=== PATIENT | female | born 1940 | race Caucasian/White ===

== ENCOUNTER 2021-03-09 10:53 | Inpatient (IN) | payer MEDICARE ==
[2021-03-09] MEDS ORDERED: Eucerin (Mineral Oil/Petrolatum,White) 30 gm Jar TOP PRN (14:12)
[2021-03-09] MEDS ORDERED: Sodium Chloride 0.65% Nasal 44 ML BOT EA NARE PRN (14:12)
[2021-03-09] MEDS ORDERED: Acetaminophen 325 MG TAB PO PRN (14:12)
[2021-03-09] MEDS ORDERED: HumaLOG 300 UNITS/3 ML VIAL SC PRN (14:12)
[2021-03-09] MEDS ORDERED: Calcium Carbonate 500 MG ChewTAB PO PRN (14:12)
[2021-03-09] MEDS ORDERED: Dextrose 50% Abboject 50 ML SYRINGE SLOW IVP PRN (14:12)
[2021-03-09] MEDS ORDERED: Acetaminophen 650 MG Suppository PR PRN (14:12)
[2021-03-09] MEDS ORDERED: Ondansetron ODT 4 MG TAB PO PRN (14:12)
[2021-03-09] MEDS ORDERED: Artificial Tear Sol 15 ML BOT EA EYE PRN (14:12)
[2021-03-09] MEDS ORDERED: Cepastat Lozenges 1 LOZ PO PRN (14:12)
[2021-03-09] MEDS ORDERED: Loperamide HCl 2 MG CAP PO PRN ×2 (14:12)
[2021-03-09] MEDS ORDERED: cloNIDine 0.1 MG TAB PO PRN (14:12)
[2021-03-09 16:35] LABS: Bilirubin Negative (Negative); Blood, Urine Small (Negative); Clarity Clear (Clear); Glucose, Urine (Dipstick) Negative (Negative); Ketone, Urine Negative (Negative); Leukocyte Small (Negative); Nitrite Negative (Negative); Protein, Urine (Dipstick) Negative (Neg-Trace); Specific Gravity, Urine 1.025 (1.005-1.030); Urobilinogen 0.2 mg/dL (Less than 2); pH, Urine 5.5 (5.0-9.0)
[2021-03-09 17:06] LABS: Bacteria/HPF Rare-Few HPF (None Seen); RBC/HPF 0-3 HPF (0-3); Squamous Epithelial 0-3 HPF (0-3)
[2021-03-09 17:07] LABS: Crystals/HPF 1+ URIC ACID HPF (Negative); Urine Culture Reflex Yes Yes
[2021-03-09] MEDS: Atorvastatin Calcium 40 MG TAB PO SCH (21:17)
[2021-03-09] MEDS: metFORMIN 500 MG TAB PO SCH (21:17)
[2021-03-09] MEDS: Ciprofloxacin 500 MG TAB PO SCH (21:17)
[2021-03-09] MEDS: Trospium 20 MG TAB PO SCH (21:17)
[2021-03-09] MEDS: Apixaban 5 MG TAB PO SCH (21:17)
[2021-03-09] MEDS: Famotidine 20 MG TAB PO SCH (21:17)
[2021-03-09] MEDS: Carvedilol 3.125 MG TAB PO SCH (21:17)
[2021-03-09] MEDS: Transdermal Patch Removal TOP SCH (21:19)
[2021-03-10 05:29] LABS: Anion Gap 11 mmol/L (10-20); BUN (Urea Nitrogen) 17 mg/dL (9.8-20.1); Calc. Creatinine Clearance 84 mL/min (70-130); Calcium 8.5 mg/dL (7.8-10.44); Carbon Dioxide 28 mmol/L (23-31); Chloride 101 mmol/L (98-107); Glucose 109 mg/dL (83-110); Potassium 4.2 mmol/L (3.5-5.1); Sodium 136 mmol/L (136-145)
[2021-03-10 05:32] LABS: Band 9 % (5-11); Eosinophils 1 % (0-10); Hemoglobin 10.7 g/dL (12.0-16.0); Lymphocytes 21 % (21-51); MDiff Complete? YES; Mean Corpuscular HGB CONC 30.3 g/dL (32.0-36.0); Mean Corpuscular Hemoglobin 28.5 pg (27.0-31.0); Mean Corpuscular Volume 94.1 fL (78.0-98.0); Mean Platelet Volume 7.8 fL (7.4-10.4); Metamyelocyte 6 % (0-0); Monocytes 2 % (0-10); Myelocyte 1 % (0-0); Neutrophil 60 % (42-75); Platelet Count 275 thou/uL (130-400); Platelet Morphology Comment Appears Adequate; RBC Distribution Width 12.1 % (11.5-14.5); RBC Morphology Normal; Red Blood Cell (RBC) Count 3.76 mill/uL (4.20-5.40); White Blood Cell (WBC) Count 11.6 thou/uL (4.8-10.8)
[2021-03-10] MEDS: Levothyroxine Sodium 75 MCG TAB PO SCH (05:37)
[2021-03-10] MEDS: Ciprofloxacin 500 MG TAB PO SCH ×2 (05:37→20:48)
[2021-03-10] MEDS: Levothyroxine Sodium 100 MCG TAB PO SCH (05:37)
[2021-03-10] MEDS ORDERED: Lidocaine 5% Patch TD SCH (09:00)
[2021-03-10] MEDS ORDERED: Non-Formulary Item 1 EACH (Solifenacin Succinate [Vesicare] 10 MG Tab) PO SCH (09:00)
[2021-03-10] MEDS: Aspirin 81 mg Enteric Coated Tablet PO SCH (09:08)
[2021-03-10] MEDS: Carvedilol 3.125 MG TAB PO SCH ×2 (09:08→20:49)
[2021-03-10] MEDS: Ezetimibe 10 MG TAB PO SCH (09:08)
[2021-03-10] MEDS: Amiodarone 200 MG TAB PO SCH (09:09)
[2021-03-10] MEDS: Trospium 20 MG TAB PO SCH ×2 (09:09→20:48)
[2021-03-10] MEDS: Losartan 25 MG TAB PO SCH (09:09)
[2021-03-10] MEDS: Apixaban 5 MG TAB PO SCH ×2 (09:09→20:49)
[2021-03-10] MEDS: Famotidine 20 MG TAB PO SCH ×2 (09:09→20:48)
[2021-03-10] MEDS: metFORMIN 500 MG TAB PO SCH ×2 (09:09→20:49)
[2021-03-10] MEDS: Lidocaine 5% Patch TD SCH (09:09)
[2021-03-10] MEDS: Transdermal Patch Removal TOP SCH (20:49)
[2021-03-10] MEDS: Atorvastatin Calcium 40 MG TAB PO SCH (20:49)
[2021-03-11] MEDS: Levothyroxine Sodium 75 MCG TAB PO SCH (06:10)
[2021-03-11] MEDS: Ciprofloxacin 500 MG TAB PO SCH ×2 (06:10→20:28)
[2021-03-11] MEDS: Levothyroxine Sodium 100 MCG TAB PO SCH (06:10)
[2021-03-11] MEDS: Aspirin 81 mg Enteric Coated Tablet PO SCH (08:55)
[2021-03-11] MEDS: Famotidine 20 MG TAB PO SCH ×2 (08:55→20:28)
[2021-03-11] MEDS: Ezetimibe 10 MG TAB PO SCH (08:55)
[2021-03-11] MEDS: Carvedilol 3.125 MG TAB PO SCH ×2 (08:55→20:29)
[2021-03-11] MEDS: Apixaban 5 MG TAB PO SCH ×2 (08:55→20:29)
[2021-03-11] MEDS: Amiodarone 200 MG TAB PO SCH (08:55)
[2021-03-11] MEDS: Lidocaine 5% Patch TD SCH (08:56)
[2021-03-11] MEDS: Losartan 25 MG TAB PO SCH (08:56)
[2021-03-11] MEDS: Trospium 20 MG TAB PO SCH ×2 (08:56→20:29)
[2021-03-11] MEDS: metFORMIN 500 MG TAB PO SCH ×2 (08:56→20:29)
[2021-03-11] MEDS: Bisacodyl 5 MG TAB PO PRN (12:34)
[2021-03-11] MEDS: Atorvastatin Calcium 40 MG TAB PO SCH (20:28)
[2021-03-11] MEDS: Transdermal Patch Removal TOP SCH (20:29)
[2021-03-12] MEDS: Levothyroxine Sodium 75 MCG TAB PO SCH (05:51)
[2021-03-12] MEDS: Levothyroxine Sodium 100 MCG TAB PO SCH (05:51)
[2021-03-12] MEDS: Ciprofloxacin 500 MG TAB PO SCH ×2 (05:51→21:27)
[2021-03-12] MEDS: Apixaban 5 MG TAB PO SCH ×2 (09:40→21:28)
[2021-03-12] MEDS: Amiodarone 200 MG TAB PO SCH (09:40)
[2021-03-12] MEDS: Aspirin 81 mg Enteric Coated Tablet PO SCH (09:40)
[2021-03-12] MEDS: Ezetimibe 10 MG TAB PO SCH (09:41)
[2021-03-12] MEDS: Famotidine 20 MG TAB PO SCH ×2 (09:41→21:27)
[2021-03-12] MEDS: Losartan 25 MG TAB PO SCH (09:41)
[2021-03-12] MEDS: Carvedilol 3.125 MG TAB PO SCH ×2 (09:41→21:28)
[2021-03-12] MEDS: Lidocaine 5% Patch TD SCH (09:41)
[2021-03-12] MEDS: Trospium 20 MG TAB PO SCH ×2 (09:41→21:28)
[2021-03-12] MEDS: metFORMIN 500 MG TAB PO SCH ×2 (09:41→21:28)
[2021-03-12] MEDS: Bisacodyl 5 MG TAB PO PRN (09:42)
[2021-03-12] MEDS ORDERED: Ondansetron ODT 4 MG TAB SL PRN (12:15)
[2021-03-12] MEDS ORDERED: Fleet Enema 133 ML BOT PR PRN (13:50)
[2021-03-12] MEDS ORDERED: Magnesium Citrate 300 ML BOT PO SCH (14:45)
[2021-03-12] MEDS: Transdermal Patch Removal TOP SCH (21:28)
[2021-03-12] MEDS: Atorvastatin Calcium 40 MG TAB PO SCH (21:28)
[2021-03-13] MEDS: Levothyroxine Sodium 75 MCG TAB PO SCH (06:21)
[2021-03-13] MEDS: Ciprofloxacin 500 MG TAB PO SCH ×2 (06:21→21:20)
[2021-03-13] MEDS: Levothyroxine Sodium 100 MCG TAB PO SCH (06:21)
[2021-03-13] MEDS: Ezetimibe 10 MG TAB PO SCH (09:51)
[2021-03-13] MEDS: Trospium 20 MG TAB PO SCH ×2 (09:51→21:21)
[2021-03-13] MEDS: metFORMIN 500 MG TAB PO SCH ×2 (09:51→21:21)
[2021-03-13] MEDS: Aspirin 81 mg Enteric Coated Tablet PO SCH (09:51)
[2021-03-13] MEDS: Amiodarone 200 MG TAB PO SCH (09:51)
[2021-03-13] MEDS: Apixaban 5 MG TAB PO SCH ×2 (09:51→21:21)
[2021-03-13] MEDS: Famotidine 20 MG TAB PO SCH ×2 (09:51→21:21)
[2021-03-13] MEDS: Lidocaine 5% Patch TD SCH (09:51)
[2021-03-13] MEDS: Losartan 25 MG TAB PO SCH (09:52)
[2021-03-13] MEDS: Acetaminophen 500 MG TAB PO PRN (09:52)
[2021-03-13] MEDS: Carvedilol 3.125 MG TAB PO SCH ×2 (09:52→21:20)
[2021-03-13] MEDS: Atorvastatin Calcium 40 MG TAB PO SCH (21:20)
[2021-03-13] MEDS: Transdermal Patch Removal TOP SCH (21:23)
[2021-03-14] MEDS: Levothyroxine Sodium 75 MCG TAB PO SCH (05:05)
[2021-03-14] MEDS: Ciprofloxacin 500 MG TAB PO SCH ×2 (05:05→20:33)
[2021-03-14] MEDS: Levothyroxine Sodium 100 MCG TAB PO SCH (05:05)
[2021-03-14] MEDS: Famotidine 20 MG TAB PO SCH ×2 (08:30→20:33)
[2021-03-14] MEDS: Ezetimibe 10 MG TAB PO SCH (08:30)
[2021-03-14] MEDS: Trospium 20 MG TAB PO SCH ×2 (08:31→20:33)
[2021-03-14] MEDS: Aspirin 81 mg Enteric Coated Tablet PO SCH (08:31)
[2021-03-14] MEDS: Apixaban 5 MG TAB PO SCH ×2 (08:31→20:33)
[2021-03-14] MEDS: metFORMIN 500 MG TAB PO SCH ×2 (08:31→20:33)
[2021-03-14] MEDS: Amiodarone 200 MG TAB PO SCH (08:31)
[2021-03-14] MEDS: Carvedilol 3.125 MG TAB PO SCH ×2 (08:31→20:33)
[2021-03-14] MEDS: Losartan 25 MG TAB PO SCH (08:31)
[2021-03-14] MEDS: Lidocaine 5% Patch TD SCH (08:31)
[2021-03-14] MEDS: Transdermal Patch Removal TOP SCH (20:33)
[2021-03-14] MEDS: Atorvastatin Calcium 40 MG TAB PO SCH (20:33)
[2021-03-14] MEDS: Acetaminophen 500 MG TAB PO PRN (20:38)
[2021-03-15] MEDS: Levothyroxine Sodium 75 MCG TAB PO SCH (05:39)
[2021-03-15] MEDS: Levothyroxine Sodium 100 MCG TAB PO SCH (05:39)
[2021-03-15] MEDS: Ciprofloxacin 500 MG TAB PO SCH ×2 (05:39→20:41)
[2021-03-15] MEDS: Aspirin 81 mg Enteric Coated Tablet PO SCH (12:08)
[2021-03-15] MEDS: Amiodarone 200 MG TAB PO SCH (12:08)
[2021-03-15] MEDS: Apixaban 5 MG TAB PO SCH ×2 (12:08→20:41)
[2021-03-15] MEDS: Carvedilol 3.125 MG TAB PO SCH ×2 (12:08→20:41)
[2021-03-15] MEDS: Lidocaine 5% Patch TD SCH (12:09)
[2021-03-15] MEDS: Famotidine 20 MG TAB PO SCH ×2 (12:09→20:41)
[2021-03-15] MEDS: Trospium 20 MG TAB PO SCH ×2 (12:09→20:41)
[2021-03-15] MEDS: Ezetimibe 10 MG TAB PO SCH (12:09)
[2021-03-15] MEDS: metFORMIN 500 MG TAB PO SCH ×2 (12:09→20:41)
[2021-03-15] MEDS: Losartan 25 MG TAB PO SCH (12:09)
[2021-03-15] MEDS: Atorvastatin Calcium 40 MG TAB PO SCH (20:41)
[2021-03-15] MEDS: Acetaminophen 500 MG TAB PO PRN (20:52)
[2021-03-15] MEDS: Transdermal Patch Removal TOP SCH (21:00)
[2021-03-16] MEDS: Ciprofloxacin 500 MG TAB PO SCH ×2 (05:33→21:14)
[2021-03-16] MEDS: Levothyroxine Sodium 75 MCG TAB PO SCH (05:33)
[2021-03-16] MEDS: Levothyroxine Sodium 100 MCG TAB PO SCH (05:37)
[2021-03-16] MEDS: metFORMIN 500 MG TAB PO SCH ×2 (08:31→21:14)
[2021-03-16] MEDS: Aspirin 81 mg Enteric Coated Tablet PO SCH (08:31)
[2021-03-16] MEDS: Famotidine 20 MG TAB PO SCH ×2 (08:32→21:16)
[2021-03-16] MEDS: Carvedilol 3.125 MG TAB PO SCH ×2 (08:32→21:16)
[2021-03-16] MEDS: Trospium 20 MG TAB PO SCH ×2 (08:32→21:16)
[2021-03-16] MEDS: Losartan 25 MG TAB PO SCH (08:32)
[2021-03-16] MEDS: Ezetimibe 10 MG TAB PO SCH (08:32)
[2021-03-16] MEDS: Apixaban 5 MG TAB PO SCH ×2 (08:32→21:16)
[2021-03-16] MEDS: Amiodarone 200 MG TAB PO SCH (08:32)
[2021-03-16] MEDS: Lidocaine 5% Patch TD SCH (08:33)
[2021-03-16] MEDS: Transdermal Patch Removal TOP SCH (21:00)
[2021-03-16] MEDS: Acetaminophen 500 MG TAB PO PRN (21:14)
[2021-03-16] MEDS: Atorvastatin Calcium 40 MG TAB PO SCH (21:16)
[2021-03-17] MEDS: Ciprofloxacin 500 MG TAB PO SCH ×2 (05:16→21:56)
[2021-03-17] MEDS: Levothyroxine Sodium 75 MCG TAB PO SCH (05:16)
[2021-03-17] MEDS: Levothyroxine Sodium 100 MCG TAB PO SCH (05:16)
[2021-03-17] MEDS: Losartan 25 MG TAB PO SCH (05:16)
[2021-03-17] MEDS: Aspirin 81 mg Enteric Coated Tablet PO SCH (07:58)
[2021-03-17] MEDS: Apixaban 5 MG TAB PO SCH ×2 (07:59→21:56)
[2021-03-17] MEDS: Ezetimibe 10 MG TAB PO SCH (07:59)
[2021-03-17] MEDS: Senokot S 8.6-50 MG TAB PO PRN (07:59)
[2021-03-17] MEDS: Trospium 20 MG TAB PO SCH ×2 (07:59→21:56)
[2021-03-17] MEDS: metFORMIN 500 MG TAB PO SCH ×2 (07:59→21:56)
[2021-03-17] MEDS: Carvedilol 3.125 MG TAB PO SCH ×2 (08:00→21:56)
[2021-03-17] MEDS: Amiodarone 200 MG TAB PO SCH (08:00)
[2021-03-17] MEDS: Famotidine 20 MG TAB PO SCH ×2 (08:00→21:56)
[2021-03-17] MEDS: Lidocaine 5% Patch TD SCH (08:02)
[2021-03-17] MEDS: Bisacodyl 5 MG TAB PO PRN (14:52)
[2021-03-17] MEDS: Atorvastatin Calcium 40 MG TAB PO SCH (21:57)
[2021-03-17] MEDS: Transdermal Patch Removal TOP SCH (22:02)
[2021-03-18] MEDS: Ciprofloxacin 500 MG TAB PO SCH ×2 (05:31→21:31)
[2021-03-18] MEDS: Losartan 25 MG TAB PO SCH (05:32)
[2021-03-18] MEDS: Levothyroxine Sodium 75 MCG TAB PO SCH (05:32)
[2021-03-18] MEDS: Levothyroxine Sodium 100 MCG TAB PO SCH (05:32)
[2021-03-18] MEDS: Lidocaine 5% Patch TD SCH (09:19)
[2021-03-18] MEDS: Acetaminophen 500 MG TAB PO PRN (09:20)
[2021-03-18] MEDS: Aspirin 81 mg Enteric Coated Tablet PO SCH (09:20)
[2021-03-18] MEDS: Famotidine 20 MG TAB PO SCH ×2 (09:20→21:31)
[2021-03-18] MEDS: Trospium 20 MG TAB PO SCH ×2 (09:20→21:31)
[2021-03-18] MEDS: Carvedilol 3.125 MG TAB PO SCH ×2 (09:20→21:31)
[2021-03-18] MEDS: Ezetimibe 10 MG TAB PO SCH (09:20)
[2021-03-18] MEDS: metFORMIN 500 MG TAB PO SCH ×2 (09:20→21:31)
[2021-03-18] MEDS: Amiodarone 200 MG TAB PO SCH (09:20)
[2021-03-18] MEDS: Apixaban 5 MG TAB PO SCH ×2 (09:20→21:31)
[2021-03-18] MEDS: Senokot S 8.6-50 MG TAB PO PRN (09:24)
[2021-03-18] MEDS: Atorvastatin Calcium 40 MG TAB PO SCH (21:31)
[2021-03-18] MEDS: Transdermal Patch Removal TOP SCH (21:41)
[2021-03-19] MEDS: Levothyroxine Sodium 100 MCG TAB PO SCH (04:53)
[2021-03-19] MEDS: Losartan 25 MG TAB PO SCH (04:53)
[2021-03-19] MEDS: Levothyroxine Sodium 75 MCG TAB PO SCH (04:54)
[2021-03-19] MEDS: Ciprofloxacin 500 MG TAB PO SCH ×2 (04:54→20:51)
[2021-03-19] MEDS: metFORMIN 500 MG TAB PO SCH ×2 (09:55→20:51)
[2021-03-19] MEDS: Lidocaine 5% Patch TD SCH (09:55)
[2021-03-19] MEDS: Ezetimibe 10 MG TAB PO SCH (09:55)
[2021-03-19] MEDS: Amiodarone 200 MG TAB PO SCH (09:55)
[2021-03-19] MEDS: Acetaminophen 500 MG TAB PO PRN (09:55)
[2021-03-19] MEDS: Trospium 20 MG TAB PO SCH ×2 (09:55→20:51)
[2021-03-19] MEDS: Famotidine 20 MG TAB PO SCH ×2 (09:55→20:51)
[2021-03-19] MEDS: Carvedilol 3.125 MG TAB PO SCH ×2 (09:55→20:50)
[2021-03-19] MEDS: Apixaban 5 MG TAB PO SCH ×2 (09:55→20:51)
[2021-03-19] MEDS: Aspirin 81 mg Enteric Coated Tablet PO SCH (09:55)
[2021-03-19] MEDS: Atorvastatin Calcium 40 MG TAB PO SCH (20:51)
[2021-03-19] MEDS: Transdermal Patch Removal TOP SCH (20:51)
[2021-03-20] MEDS: Acetaminophen 500 MG TAB PO PRN (01:20)
[2021-03-20] MEDS: Levothyroxine Sodium 75 MCG TAB PO SCH (05:14)
[2021-03-20] MEDS: Ciprofloxacin 500 MG TAB PO SCH ×2 (05:15→21:04)
[2021-03-20] MEDS: Levothyroxine Sodium 100 MCG TAB PO SCH (05:15)
[2021-03-20] MEDS: Losartan Potassium 50 MG TAB PO SCH (05:15)
[2021-03-20] MEDS: Amiodarone 200 MG TAB PO SCH (09:05)
[2021-03-20] MEDS: Apixaban 5 MG TAB PO SCH ×2 (09:05→21:04)
[2021-03-20] MEDS: Aspirin 81 mg Enteric Coated Tablet PO SCH (09:05)
[2021-03-20] MEDS: Carvedilol 3.125 MG TAB PO SCH ×2 (09:05→21:04)
[2021-03-20] MEDS: Lidocaine 5% Patch TD SCH (09:06)
[2021-03-20] MEDS: Famotidine 20 MG TAB PO SCH ×2 (09:06→21:04)
[2021-03-20] MEDS: Trospium 20 MG TAB PO SCH ×2 (09:06→21:04)
[2021-03-20] MEDS: metFORMIN 500 MG TAB PO SCH ×2 (09:06→21:04)
[2021-03-20] MEDS: Ezetimibe 10 MG TAB PO SCH (09:06)
[2021-03-20] MEDS: Transdermal Patch Removal TOP SCH (21:04)
[2021-03-20] MEDS: Atorvastatin Calcium 40 MG TAB PO SCH (21:04)
[2021-03-21 05:13] LABS: Hemoglobin 12.9 g/dL (12.0-16.0); Platelet Count 505 thou/uL (130-400)
[2021-03-21] MEDS: Levothyroxine Sodium 100 MCG TAB PO SCH (05:44)
[2021-03-21] MEDS: Losartan Potassium 50 MG TAB PO SCH (05:44)
[2021-03-21] MEDS: Levothyroxine Sodium 75 MCG TAB PO SCH (05:44)
[2021-03-21] MEDS: Ciprofloxacin 500 MG TAB PO SCH ×2 (05:44→20:39)
[2021-03-21] MEDS: Famotidine 20 MG TAB PO SCH ×2 (08:58→20:38)
[2021-03-21] MEDS: Aspirin 81 mg Enteric Coated Tablet PO SCH (08:58)
[2021-03-21] MEDS: Carvedilol 3.125 MG TAB PO SCH ×2 (08:58→20:39)
[2021-03-21] MEDS: Ezetimibe 10 MG TAB PO SCH (08:58)
[2021-03-21] MEDS: Amiodarone 200 MG TAB PO SCH (08:58)
[2021-03-21] MEDS: Apixaban 5 MG TAB PO SCH ×2 (08:58→20:39)
[2021-03-21] MEDS: Lidocaine 5% Patch TD SCH (08:59)
[2021-03-21] MEDS: metFORMIN 500 MG TAB PO SCH ×2 (08:59→20:39)
[2021-03-21] MEDS: Trospium 20 MG TAB PO SCH ×2 (08:59→20:39)
[2021-03-21] MEDS: Atorvastatin Calcium 40 MG TAB PO SCH (20:39)
[2021-03-21] MEDS: Acetaminophen 500 MG TAB PO PRN (20:40)
[2021-03-21] MEDS: Transdermal Patch Removal TOP SCH (20:41)
[2021-03-22] MEDS: Levothyroxine Sodium 100 MCG TAB PO SCH (05:28)
[2021-03-22] MEDS: Ciprofloxacin 500 MG TAB PO SCH ×2 (05:28→20:27)
[2021-03-22] MEDS: Losartan Potassium 50 MG TAB PO SCH (05:28)
[2021-03-22] MEDS: Levothyroxine Sodium 75 MCG TAB PO SCH (05:36)
[2021-03-22] MEDS: Ezetimibe 10 MG TAB PO SCH (08:25)
[2021-03-22] MEDS: Amiodarone 200 MG TAB PO SCH (08:25)
[2021-03-22] MEDS: Trospium 20 MG TAB PO SCH ×2 (08:25→20:28)
[2021-03-22] MEDS: Carvedilol 3.125 MG TAB PO SCH ×2 (08:25→20:27)
[2021-03-22] MEDS: Aspirin 81 mg Enteric Coated Tablet PO SCH (08:25)
[2021-03-22] MEDS: metFORMIN 500 MG TAB PO SCH ×2 (08:25→20:27)
[2021-03-22] MEDS: Apixaban 5 MG TAB PO SCH ×2 (08:25→20:27)
[2021-03-22] MEDS: Famotidine 20 MG TAB PO SCH ×2 (08:25→20:28)
[2021-03-22] MEDS: Lidocaine 5% Patch TD SCH (08:26)
[2021-03-22] MEDS: Atorvastatin Calcium 40 MG TAB PO SCH (20:27)
[2021-03-22] MEDS: Transdermal Patch Removal TOP SCH (20:28)
[2021-03-23] MEDS: Ciprofloxacin 500 MG TAB PO SCH ×2 (05:23→20:49)
[2021-03-23] MEDS: Levothyroxine Sodium 75 MCG TAB PO SCH (05:23)
[2021-03-23] MEDS: Losartan Potassium 50 MG TAB PO SCH (05:23)
[2021-03-23] MEDS: Levothyroxine Sodium 100 MCG TAB PO SCH (05:23)
[2021-03-23] MEDS: Trospium 20 MG TAB PO SCH ×2 (07:46→20:49)
[2021-03-23] MEDS: Ezetimibe 10 MG TAB PO SCH (07:47)
[2021-03-23] MEDS: Carvedilol 3.125 MG TAB PO SCH ×2 (07:47→20:49)
[2021-03-23] MEDS: Famotidine 20 MG TAB PO SCH ×2 (07:47→20:49)
[2021-03-23] MEDS: Aspirin 81 mg Enteric Coated Tablet PO SCH (07:47)
[2021-03-23] MEDS: Apixaban 5 MG TAB PO SCH ×2 (07:47→20:49)
[2021-03-23] MEDS: Amiodarone 200 MG TAB PO SCH (07:47)
[2021-03-23] MEDS: metFORMIN 500 MG TAB PO SCH ×2 (07:48→20:50)
[2021-03-23] MEDS: Lidocaine 5% Patch TD SCH (07:48)
[2021-03-23] MEDS: Senokot S 8.6-50 MG TAB PO PRN (12:21)
[2021-03-23] MEDS: Atorvastatin Calcium 40 MG TAB PO SCH (20:49)
[2021-03-23] MEDS: Transdermal Patch Removal TOP SCH (20:50)
[2021-03-23] MEDS: Acetaminophen 500 MG TAB PO PRN (20:50)
[2021-03-24] MEDS: Levothyroxine Sodium 75 MCG TAB PO SCH (05:07)
[2021-03-24] MEDS: Ciprofloxacin 500 MG TAB PO SCH ×2 (05:07→20:37)
[2021-03-24] MEDS: Losartan Potassium 50 MG TAB PO SCH (05:07)
[2021-03-24] MEDS: Levothyroxine Sodium 100 MCG TAB PO SCH (05:07)
[2021-03-24] MEDS: Amiodarone 200 MG TAB PO SCH (08:12)
[2021-03-24] MEDS: Apixaban 5 MG TAB PO SCH ×2 (08:12→20:37)
[2021-03-24] MEDS: Aspirin 81 mg Enteric Coated Tablet PO SCH (08:12)
[2021-03-24] MEDS: Trospium 20 MG TAB PO SCH ×2 (08:12→20:37)
[2021-03-24] MEDS: Ezetimibe 10 MG TAB PO SCH (08:13)
[2021-03-24] MEDS: Carvedilol 3.125 MG TAB PO SCH ×2 (08:13→20:37)
[2021-03-24] MEDS: metFORMIN 500 MG TAB PO SCH ×2 (08:13→20:37)
[2021-03-24] MEDS: Famotidine 20 MG TAB PO SCH ×2 (08:13→20:37)
[2021-03-24] MEDS: Acetaminophen 500 MG TAB PO PRN ×2 (08:14→20:38)
[2021-03-24] MEDS: Lidocaine 5% Patch TD SCH (08:14)
[2021-03-24] MEDS: Atorvastatin Calcium 40 MG TAB PO SCH (20:37)
[2021-03-24] MEDS: Transdermal Patch Removal TOP SCH (20:38)
[2021-03-25] MEDS: Levothyroxine Sodium 75 MCG TAB PO SCH (05:03)
[2021-03-25] MEDS: Ciprofloxacin 500 MG TAB PO SCH ×2 (05:03→22:01)
[2021-03-25] MEDS: Levothyroxine Sodium 100 MCG TAB PO SCH (05:04)
[2021-03-25] MEDS: Losartan Potassium 50 MG TAB PO SCH (05:04)
[2021-03-25 06:08] VITALS: BMI 33.1
[2021-03-25] MEDS: Aspirin 81 mg Enteric Coated Tablet PO SCH (08:32)
[2021-03-25] MEDS: Carvedilol 3.125 MG TAB PO SCH ×2 (08:32→21:28)
[2021-03-25] MEDS: Famotidine 20 MG TAB PO SCH ×2 (08:32→21:28)
[2021-03-25] MEDS: metFORMIN 500 MG TAB PO SCH ×2 (08:32→21:28)
[2021-03-25] MEDS: Lidocaine 5% Patch TD SCH (08:32)
[2021-03-25] MEDS: Apixaban 5 MG TAB PO SCH ×2 (08:32→21:28)
[2021-03-25] MEDS: Trospium 20 MG TAB PO SCH ×2 (08:32→21:28)
[2021-03-25] MEDS: Ezetimibe 10 MG TAB PO SCH (08:32)
[2021-03-25] MEDS: Amiodarone 200 MG TAB PO SCH (08:32)
[2021-03-25] MEDS: Bisacodyl 5 MG TAB PO PRN (08:54)
[2021-03-25] MEDS: Acetaminophen 500 MG TAB PO PRN ×2 (15:43→21:28)
[2021-03-25] MEDS: Atorvastatin Calcium 40 MG TAB PO SCH (21:28)
[2021-03-25] MEDS: Transdermal Patch Removal TOP SCH (21:29)
[2021-03-26] MEDS: Ciprofloxacin 500 MG TAB PO SCH (05:30)
[2021-03-26] MEDS: Levothyroxine Sodium 75 MCG TAB PO SCH (05:30)
[2021-03-26] MEDS: Losartan Potassium 50 MG TAB PO SCH (05:30)
[2021-03-26] MEDS: Levothyroxine Sodium 100 MCG TAB PO SCH (05:30)
[2021-03-26] MEDS: Acetaminophen 500 MG TAB PO PRN (06:27)
[2021-03-26] MEDS: Trospium 20 MG TAB PO SCH (08:20)
[2021-03-26] MEDS: Famotidine 20 MG TAB PO SCH (08:20)
[2021-03-26] MEDS: Apixaban 5 MG TAB PO SCH (08:20)
[2021-03-26] MEDS: Aspirin 81 mg Enteric Coated Tablet PO SCH (08:20)
[2021-03-26] MEDS: Amiodarone 200 MG TAB PO SCH (08:20)
[2021-03-26] MEDS: Carvedilol 3.125 MG TAB PO SCH (08:21)
[2021-03-26] MEDS: Ezetimibe 10 MG TAB PO SCH (08:21)
[2021-03-26] MEDS: Lidocaine 5% Patch TD SCH (08:21)
[2021-03-26] MEDS: metFORMIN 500 MG TAB PO SCH (08:21)
[2021-03-26 09:10] VITALS: BP 164/84; TEMP 98.4
== END 2021-03-26 14:30 | disposition home health service (06) | DRG 69 ==
LOC: NAV ACUTE 12:30
PROVIDERS: ADMIT Family Medicine; ATTEND Family Medicine
DX: G45.9 Transient cerebral ischemic attack, unspecified (principal); N39.0 Urinary tract infection, site not specified; I50.30 Unspecified diastolic (congestive) heart failure; I48.91 Unspecified atrial fibrillation; I11.0 Hypertensive heart disease with heart failure; E03.9 Hypothyroidism, unspecified; K21.9 Gastro-esophageal reflux disease without esophagitis; E11.9 Type 2 diabetes mellitus without complications; E78.5 Hyperlipidemia, unspecified; X58.XXXD Exposure to other specified factors, subsequent encounter; K59.00 Constipation, unspecified; S52.512D Displaced fracture of left radial styloid process, subsequent encounter for closed fracture with routine healing; S52.612D Displaced fracture of left ulna styloid process, subsequent encounter for closed fracture with routine healing; Z85.3 Personal history of malignant neoplasm of breast; Z90.12 Acquired absence of left breast and nipple; Z90.710 Acquired absence of both cervix and uterus; Z90.49 Acquired absence of other specified parts of digestive tract; Z90.89 Acquired absence of other organs; Z98.890 Other specified postprocedural states; Z87.891 Personal history of nicotine dependence
CPT/HCPCS: 36416; 80048; 81001; 82565; 85014; 85018; 85025; 85049; 87086

== ENCOUNTER 2021-06-26 15:20 | Inpatient (IN) | payer MEDICARE ==
[2021-06-26] MEDS ORDERED: HumaLOG 300 UNITS/3 ML VIAL SC PRN ×2 (20:15)
[2021-06-26] MEDS ORDERED: Dextrose 5% in Water 1,000 ML IV PRN (20:15)
[2021-06-26] MEDS ORDERED: Dextrose 50% Abboject 50 ML SYRINGE IVP PRN (20:15)
[2021-06-26] MEDS: Saccharomyces boulardii 250 MG CAP PO SCH (20:27)
[2021-06-26] MEDS: Apixaban 5 MG TAB PO SCH (20:28)
[2021-06-26] MEDS: Atorvastatin Calcium 40 MG TAB PO SCH (20:28)
[2021-06-26] MEDS: Cefdinir 300 MG CAP PO SCH (20:28)
[2021-06-26] MEDS: Trospium 20 MG TAB PO SCH (22:33)
[2021-06-27] MEDS: Levothyroxine Sodium 100 MCG TAB PO SCH (05:35)
[2021-06-27] MEDS: Levothyroxine Sodium 75 MCG TAB PO SCH (05:35)
[2021-06-27] MEDS: Losartan Potassium 50 MG TAB PO SCH (05:36)
[2021-06-27] MEDS: Acetaminophen 325 MG TAB PO PRN (06:07)
[2021-06-27 06:42] LABS: #Basophils 0.3 thou/uL (0.0-0.2); #Eosinphils 0.3 thou/uL (0.0-0.7); #Lymphocytes 2.1 thou/uL (1.20-3.40); #Monocytes 1.8 thou/uL (0.11-0.59); %Basophils 1.9 % (0.0-1.0); %Eosinophils 2.3 % (0.0-10.0); %Lymphocytes 15.7 % (21.0-51.0); %Neutrophils 67.1 % (42.0-75.0); Hemoglobin 11.8 g/dL (12.0-16.0); Mean Corpuscular HGB CONC 31.8 g/dL (32.0-36.0); Mean Corpuscular Hemoglobin 30.1 pg (27.0-31.0); Mean Corpuscular Volume 94.5 fL (78.0-98.0); Mean Platelet Volume 7.3 fL (7.4-10.4); Platelet Count 348 thou/uL (130-400); RBC Distribution Width 12.9 % (11.5-14.5); Red Blood Cell (RBC) Count 3.91 mill/uL (4.20-5.40); White Blood Cell (WBC) Count 13.4 thou/uL (4.8-10.8)
[2021-06-27 06:52] LABS: ALT (SGPT) 24 U/L (8-55); AST (SGOT) 24 U/L (5-34); Albumin 3.3 g/dL (3.4-4.8); Alkaline Phosphatase 79 U/L (40-110); Anion Gap 16 mmol/L (10-20); BUN (Urea Nitrogen) 13 mg/dL (9.8-20.1); Bilirubin, Total 0.7 mg/dL (0.2-1.2); Calc. Creatinine Clearance 79 mL/min (70-130); Calcium 9.6 mg/dL (7.8-10.44); Carbon Dioxide 23 mmol/L (23-31); Chloride 101 mmol/L (98-107); Globulin 3.6 g/dL (2.4-3.5); Glucose 137 mg/dL (83-110); Potassium 4.5 mmol/L (3.5-5.1); Protein, Total 6.9 g/dL (5.8-8.1); Sodium 135 mmol/L (136-145)
[2021-06-27] MEDS ORDERED: Mag-Al Plus 1200 MG/1200 MG/120 MG/30 ML UDCUP PO PRN (07:01)
[2021-06-27] MEDS ORDERED: cloNIDine 0.1 MG TAB PO PRN (07:02)
[2021-06-27] MEDS: Carvedilol 6.25 MG TAB PO SCH ×2 (08:47→17:14)
[2021-06-27] MEDS: Cefdinir 300 MG CAP PO SCH ×2 (08:49→20:23)
[2021-06-27] MEDS: Furosemide 40 MG TAB PO SCH (08:49)
[2021-06-27] MEDS: Apixaban 5 MG TAB PO SCH ×2 (08:49→20:23)
[2021-06-27] MEDS: Aspirin 81 mg Enteric Coated Tablet PO SCH (08:49)
[2021-06-27] MEDS: metFORMIN 500 MG TAB PO SCH (08:49)
[2021-06-27] MEDS: Multivitamin W/ Minerals 1 TAB PO SCH (08:50)
[2021-06-27] MEDS: Trospium 20 MG TAB PO SCH ×2 (08:50→20:23)
[2021-06-27] MEDS: Saccharomyces boulardii 250 MG CAP PO SCH (20:23)
[2021-06-27] MEDS: Atorvastatin Calcium 40 MG TAB PO SCH (20:23)
[2021-06-28] MEDS: Levothyroxine Sodium 75 MCG TAB PO SCH (05:07)
[2021-06-28] MEDS: Levothyroxine Sodium 100 MCG TAB PO SCH (05:07)
[2021-06-28] MEDS: Losartan Potassium 50 MG TAB PO SCH (05:07)
[2021-06-28 07:43] LABS: #Basophils 0.2 thou/uL (0.0-0.2); #Eosinphils 0.2 thou/uL (0.0-0.7); #Lymphocytes 2.9 thou/uL (1.20-3.40); #Monocytes 1.9 thou/uL (0.11-0.59); #Neutrophils 9.8 thou/uL (1.40-6.50); %Basophils 1.2 % (0.0-1.0); %Eosinophils 1.6 % (0.0-10.0); %Lymphocytes 19.4 % (21.0-51.0); %Monocytes 12.7 % (0.0-10.0); Hemoglobin 11.4 g/dL (12.0-16.0); Mean Corpuscular HGB CONC 31.7 g/dL (32.0-36.0); Mean Corpuscular Hemoglobin 29.7 pg (27.0-31.0); Mean Corpuscular Volume 93.6 fL (78.0-98.0); Mean Platelet Volume 6.7 fL (7.4-10.4); Platelet Count 417 thou/uL (130-400); RBC Distribution Width 13.2 % (11.5-14.5); Red Blood Cell (RBC) Count 3.83 mill/uL (4.20-5.40); White Blood Cell (WBC) Count 15.1 thou/uL (4.8-10.8)
[2021-06-28] MEDS: Cefdinir 300 MG CAP PO SCH ×2 (09:10→20:33)
[2021-06-28] MEDS: Carvedilol 6.25 MG TAB PO SCH ×2 (09:10→17:25)
[2021-06-28] MEDS: Aspirin 81 mg Enteric Coated Tablet PO SCH (09:10)
[2021-06-28] MEDS: Multivitamin W/ Minerals 1 TAB PO SCH (09:10)
[2021-06-28] MEDS: metFORMIN 500 MG TAB PO SCH (09:10)
[2021-06-28] MEDS: Furosemide 40 MG TAB PO SCH (09:11)
[2021-06-28] MEDS: Apixaban 5 MG TAB PO SCH ×2 (09:11→20:34)
[2021-06-28] MEDS: Trospium 20 MG TAB PO SCH ×2 (09:11→20:33)
[2021-06-28] MEDS: Acetaminophen 325 MG TAB PO PRN (11:23)
[2021-06-28] MEDS: Saccharomyces boulardii 250 MG CAP PO SCH (20:33)
[2021-06-28] MEDS: Atorvastatin Calcium 40 MG TAB PO SCH (20:33)
[2021-06-29] MEDS: Levothyroxine Sodium 100 MCG TAB PO SCH (05:24)
[2021-06-29] MEDS: Levothyroxine Sodium 75 MCG TAB PO SCH (05:25)
[2021-06-29] MEDS: Losartan Potassium 50 MG TAB PO SCH (05:27)
[2021-06-29] MEDS: Aspirin 81 mg Enteric Coated Tablet PO SCH (08:53)
[2021-06-29] MEDS: Carvedilol 6.25 MG TAB PO SCH ×2 (08:53→19:06)
[2021-06-29] MEDS: Apixaban 5 MG TAB PO SCH ×2 (08:53→20:33)
[2021-06-29] MEDS: metFORMIN 500 MG TAB PO SCH (08:53)
[2021-06-29] MEDS: Cefdinir 300 MG CAP PO SCH ×2 (08:53→20:33)
[2021-06-29] MEDS: Trospium 20 MG TAB PO SCH ×2 (08:53→20:33)
[2021-06-29] MEDS: Furosemide 40 MG TAB PO SCH (08:54)
[2021-06-29] MEDS: Multivitamin W/ Minerals 1 TAB PO SCH (08:54)
[2021-06-29] MEDS: Atorvastatin Calcium 40 MG TAB PO SCH (20:33)
[2021-06-29] MEDS: Saccharomyces boulardii 250 MG CAP PO SCH (20:33)
[2021-06-30] MEDS: Losartan Potassium 50 MG TAB PO SCH (06:15)
[2021-06-30] MEDS: Levothyroxine Sodium 100 MCG TAB PO SCH (06:15)
[2021-06-30] MEDS: Levothyroxine Sodium 75 MCG TAB PO SCH (06:15)
[2021-06-30] MEDS: Cefdinir 300 MG CAP PO SCH ×2 (08:28→20:32)
[2021-06-30] MEDS: Carvedilol 6.25 MG TAB PO SCH ×2 (08:28→17:35)
[2021-06-30] MEDS: metFORMIN 500 MG TAB PO SCH (08:28)
[2021-06-30] MEDS: Aspirin 81 mg Enteric Coated Tablet PO SCH (08:28)
[2021-06-30] MEDS: Furosemide 40 MG TAB PO SCH (08:29)
[2021-06-30] MEDS: Multivitamin W/ Minerals 1 TAB PO SCH (08:29)
[2021-06-30] MEDS: Trospium 20 MG TAB PO SCH ×2 (08:29→20:33)
[2021-06-30] MEDS: Apixaban 5 MG TAB PO SCH ×2 (08:29→20:33)
[2021-06-30 17:21] LABS: SARS-CoV-2 PCR by NAA Not Detected (NotDetected)
[2021-06-30] MEDS: Saccharomyces boulardii 250 MG CAP PO SCH (20:32)
[2021-06-30] MEDS: Atorvastatin Calcium 40 MG TAB PO SCH (20:33)
[2021-06-30] MEDS: Acetaminophen 325 MG TAB PO PRN (20:34)
[2021-07-01] MEDS: Levothyroxine Sodium 75 MCG TAB PO SCH (06:29)
[2021-07-01] MEDS: Levothyroxine Sodium 100 MCG TAB PO SCH (06:29)
[2021-07-01] MEDS: Losartan Potassium 50 MG TAB PO SCH (06:30)
[2021-07-01 08:29] LABS: Hemoglobin 11.3 g/dL (12.0-16.0); Platelet Count 488 thou/uL (130-400)
[2021-07-01] MEDS: Furosemide 40 MG TAB PO SCH (09:26)
[2021-07-01] MEDS: Cefdinir 300 MG CAP PO SCH (09:26)
[2021-07-01] MEDS: Multivitamin W/ Minerals 1 TAB PO SCH (09:26)
[2021-07-01] MEDS: Apixaban 5 MG TAB PO SCH ×2 (09:26→20:27)
[2021-07-01] MEDS: Trospium 20 MG TAB PO SCH ×2 (09:26→20:27)
[2021-07-01] MEDS: metFORMIN 500 MG TAB PO SCH (09:27)
[2021-07-01] MEDS: Aspirin 81 mg Enteric Coated Tablet PO SCH (09:27)
[2021-07-01] MEDS: Carvedilol 6.25 MG TAB PO SCH ×2 (09:27→17:22)
[2021-07-01] MEDS: Acetaminophen 325 MG TAB PO PRN ×2 (09:27→17:22)
[2021-07-01] MEDS: Polyethylene Glycol 3350 17 GM Packet PO SCH (10:26)
[2021-07-01] MEDS: Milk Of Magnesia 30 ML UDCUP PO PRN (10:27)
[2021-07-01] MEDS: Atorvastatin Calcium 40 MG TAB PO SCH (20:28)
[2021-07-02] MEDS: Levothyroxine Sodium 75 MCG TAB PO SCH (06:11)
[2021-07-02] MEDS: Losartan Potassium 50 MG TAB PO SCH (06:12)
[2021-07-02] MEDS: Levothyroxine Sodium 100 MCG TAB PO SCH (06:12)
[2021-07-02 06:26] LABS: #Basophils 0.1 thou/uL (0.0-0.2); #Eosinphils 0.2 thou/uL (0.0-0.7); #Lymphocytes 2.2 thou/uL (1.20-3.40); #Monocytes 1.4 thou/uL (0.11-0.59); #Neutrophils 6.7 thou/uL (1.40-6.50); %Basophils 1.2 % (0.0-1.0); %Eosinophils 1.8 % (0.0-10.0); %Lymphocytes 21.1 % (21.0-51.0); %Monocytes 13.2 % (0.0-10.0); %Neutrophils 62.7 % (42.0-75.0); Mean Corpuscular HGB CONC 31.6 g/dL (32.0-36.0); Mean Corpuscular Hemoglobin 29.5 pg (27.0-31.0); Mean Corpuscular Volume 93.4 fL (78.0-98.0); Mean Platelet Volume 6.7 fL (7.4-10.4); Platelet Count 451 thou/uL (130-400); Red Blood Cell (RBC) Count 3.74 mill/uL (4.20-5.40); White Blood Cell (WBC) Count 10.6 thou/uL (4.8-10.8)
[2021-07-02] MEDS: Carvedilol 6.25 MG TAB PO SCH ×2 (08:19→16:36)
[2021-07-02] MEDS: metFORMIN 500 MG TAB PO SCH (08:19)
[2021-07-02] MEDS: Trospium 20 MG TAB PO SCH ×2 (08:20→20:28)
[2021-07-02] MEDS: Acetaminophen 325 MG TAB PO PRN ×2 (08:20→13:02)
[2021-07-02] MEDS: Apixaban 5 MG TAB PO SCH ×2 (08:20→20:28)
[2021-07-02] MEDS: Aspirin 81 mg Enteric Coated Tablet PO SCH (08:20)
[2021-07-02] MEDS: Multivitamin W/ Minerals 1 TAB PO SCH (08:20)
[2021-07-02] MEDS: Polyethylene Glycol 3350 17 GM Packet PO SCH (08:20)
[2021-07-02] MEDS: Furosemide 40 MG TAB PO SCH (08:20)
[2021-07-02] MEDS: Atorvastatin Calcium 40 MG TAB PO SCH (20:29)
[2021-07-03] MEDS: Milk Of Magnesia 30 ML UDCUP PO PRN (05:28)
[2021-07-03] MEDS: Losartan Potassium 50 MG TAB PO SCH (05:33)
[2021-07-03] MEDS: Levothyroxine Sodium 75 MCG TAB PO SCH (05:33)
[2021-07-03] MEDS: Levothyroxine Sodium 100 MCG TAB PO SCH (05:33)
[2021-07-03] MEDS: Polyethylene Glycol 3350 17 GM Packet PO SCH (08:28)
[2021-07-03] MEDS: Acetaminophen 325 MG TAB PO PRN ×2 (08:28→16:50)
[2021-07-03] MEDS: Carvedilol 6.25 MG TAB PO SCH ×2 (08:30→16:51)
[2021-07-03] MEDS: Apixaban 5 MG TAB PO SCH ×2 (08:31→22:09)
[2021-07-03] MEDS: Multivitamin W/ Minerals 1 TAB PO SCH (08:31)
[2021-07-03] MEDS: Aspirin 81 mg Enteric Coated Tablet PO SCH (08:31)
[2021-07-03] MEDS: Furosemide 40 MG TAB PO SCH (08:31)
[2021-07-03] MEDS: metFORMIN 500 MG TAB PO SCH (08:31)
[2021-07-03] MEDS: Trospium 20 MG TAB PO SCH ×2 (08:32→22:10)
[2021-07-03] MEDS: Atorvastatin Calcium 40 MG TAB PO SCH (22:11)
[2021-07-04] MEDS: Losartan Potassium 50 MG TAB PO SCH (06:19)
[2021-07-04] MEDS: Levothyroxine Sodium 75 MCG TAB PO SCH (06:19)
[2021-07-04] MEDS: Levothyroxine Sodium 100 MCG TAB PO SCH (06:19)
[2021-07-04 06:25] LABS: Hemoglobin 11.5 g/dL (12.0-16.0); Platelet Count 463 thou/uL (130-400)
[2021-07-04] MEDS: Aspirin 81 mg Enteric Coated Tablet PO SCH (09:02)
[2021-07-04] MEDS: metFORMIN 500 MG TAB PO SCH (09:02)
[2021-07-04] MEDS: Carvedilol 6.25 MG TAB PO SCH ×2 (09:02→17:34)
[2021-07-04] MEDS: Multivitamin W/ Minerals 1 TAB PO SCH (09:02)
[2021-07-04] MEDS: Apixaban 5 MG TAB PO SCH ×2 (09:02→20:39)
[2021-07-04] MEDS: Polyethylene Glycol 3350 17 GM Packet PO SCH (09:03)
[2021-07-04] MEDS: Furosemide 40 MG TAB PO SCH (09:03)
[2021-07-04] MEDS: Trospium 20 MG TAB PO SCH ×2 (09:04→20:39)
[2021-07-04] MEDS: Atorvastatin Calcium 40 MG TAB PO SCH (20:39)
[2021-07-05] MEDS: Losartan Potassium 50 MG TAB PO SCH (06:30)
[2021-07-05] MEDS: Levothyroxine Sodium 100 MCG TAB PO SCH (06:30)
[2021-07-05] MEDS: Levothyroxine Sodium 75 MCG TAB PO SCH (06:31)
[2021-07-05] MEDS: Polyethylene Glycol 3350 17 GM Packet PO SCH (09:06)
[2021-07-05] MEDS: Trospium 20 MG TAB PO SCH ×2 (09:07→20:28)
[2021-07-05] MEDS: Aspirin 81 mg Enteric Coated Tablet PO SCH (09:07)
[2021-07-05] MEDS: Apixaban 5 MG TAB PO SCH ×2 (09:07→20:28)
[2021-07-05] MEDS: metFORMIN 500 MG TAB PO SCH (09:07)
[2021-07-05] MEDS: Carvedilol 6.25 MG TAB PO SCH ×2 (09:07→18:00)
[2021-07-05] MEDS: Furosemide 40 MG TAB PO SCH (09:07)
[2021-07-05] MEDS: Multivitamin W/ Minerals 1 TAB PO SCH (09:09)
[2021-07-05] MEDS: Atorvastatin Calcium 40 MG TAB PO SCH (20:28)
[2021-07-06] MEDS: Losartan Potassium 50 MG TAB PO SCH (05:35)
[2021-07-06] MEDS: Levothyroxine Sodium 75 MCG TAB PO SCH (05:35)
[2021-07-06] MEDS: Levothyroxine Sodium 100 MCG TAB PO SCH (05:35)
[2021-07-06] MEDS: metFORMIN 500 MG TAB PO SCH (08:09)
[2021-07-06] MEDS: Carvedilol 6.25 MG TAB PO SCH ×2 (08:09→16:51)
[2021-07-06] MEDS: Furosemide 40 MG TAB PO SCH (08:10)
[2021-07-06] MEDS: Multivitamin W/ Minerals 1 TAB PO SCH (08:10)
[2021-07-06] MEDS: Aspirin 81 mg Enteric Coated Tablet PO SCH (08:10)
[2021-07-06] MEDS: Apixaban 5 MG TAB PO SCH ×2 (08:10→21:12)
[2021-07-06] MEDS: Polyethylene Glycol 3350 17 GM Packet PO SCH (08:10)
[2021-07-06] MEDS: Trospium 20 MG TAB PO SCH ×2 (08:10→21:12)
[2021-07-06] MEDS: Acetaminophen 325 MG TAB PO PRN ×2 (13:45→21:12)
[2021-07-06] MEDS: Atorvastatin Calcium 40 MG TAB PO SCH (21:12)
[2021-07-07] MEDS: Levothyroxine Sodium 75 MCG TAB PO SCH (05:28)
[2021-07-07] MEDS: Losartan Potassium 50 MG TAB PO SCH (05:28)
[2021-07-07] MEDS: Levothyroxine Sodium 100 MCG TAB PO SCH (05:28)
[2021-07-07 05:45] LABS: Hemoglobin 10.7 g/dL (12.0-16.0); Platelet Count 405 thou/uL (130-400)
[2021-07-07] MEDS: Milk Of Magnesia 30 ML UDCUP PO PRN (05:57)
[2021-07-07] MEDS: Acetaminophen 325 MG TAB PO PRN ×2 (05:57→17:17)
[2021-07-07] MEDS: Apixaban 5 MG TAB PO SCH ×2 (08:03→21:00)
[2021-07-07] MEDS: metFORMIN 500 MG TAB PO SCH (08:03)
[2021-07-07] MEDS: Carvedilol 6.25 MG TAB PO SCH ×2 (08:03→17:18)
[2021-07-07] MEDS: Polyethylene Glycol 3350 17 GM Packet PO SCH (08:04)
[2021-07-07] MEDS: Multivitamin W/ Minerals 1 TAB PO SCH (08:04)
[2021-07-07] MEDS: Trospium 20 MG TAB PO SCH ×2 (08:04→21:00)
[2021-07-07] MEDS: Furosemide 40 MG TAB PO SCH (08:04)
[2021-07-07] MEDS: Aspirin 81 mg Enteric Coated Tablet PO SCH (08:04)
[2021-07-07] MEDS: Atorvastatin Calcium 40 MG TAB PO SCH (21:00)
[2021-07-08] MEDS: Losartan Potassium 50 MG TAB PO SCH (05:43)
[2021-07-08] MEDS: Levothyroxine Sodium 75 MCG TAB PO SCH (05:43)
[2021-07-08] MEDS: Levothyroxine Sodium 100 MCG TAB PO SCH (05:43)
[2021-07-08] MEDS: Furosemide 40 MG TAB PO SCH (09:25)
[2021-07-08] MEDS: Carvedilol 6.25 MG TAB PO SCH ×2 (09:25→17:06)
[2021-07-08] MEDS: Apixaban 5 MG TAB PO SCH ×2 (09:25→20:34)
[2021-07-08] MEDS: metFORMIN 500 MG TAB PO SCH (09:25)
[2021-07-08] MEDS: Aspirin 81 mg Enteric Coated Tablet PO SCH (09:25)
[2021-07-08] MEDS: Multivitamin W/ Minerals 1 TAB PO SCH (09:26)
[2021-07-08] MEDS: Polyethylene Glycol 3350 17 GM Packet PO SCH (09:26)
[2021-07-08] MEDS: Trospium 20 MG TAB PO SCH ×2 (09:32→20:34)
[2021-07-08 15:32] LABS: SARS-CoV-2 PCR by NAA Not Detected (NotDetected)
[2021-07-08] MEDS: Atorvastatin Calcium 40 MG TAB PO SCH (20:34)
[2021-07-08] MEDS: Acetaminophen 325 MG TAB PO PRN (20:34)
[2021-07-09] MEDS: Acetaminophen 325 MG TAB PO PRN (05:10)
[2021-07-09] MEDS: Levothyroxine Sodium 100 MCG TAB PO SCH (05:10)
[2021-07-09] MEDS: Levothyroxine Sodium 75 MCG TAB PO SCH (05:10)
[2021-07-09] MEDS: Losartan Potassium 50 MG TAB PO SCH (05:11)
[2021-07-09] MEDS: Furosemide 40 MG TAB PO SCH (08:27)
[2021-07-09] MEDS: Multivitamin W/ Minerals 1 TAB PO SCH (08:27)
[2021-07-09] MEDS: Carvedilol 6.25 MG TAB PO SCH ×2 (08:27→16:24)
[2021-07-09] MEDS: Trospium 20 MG TAB PO SCH ×2 (08:27→20:36)
[2021-07-09] MEDS: Apixaban 5 MG TAB PO SCH ×2 (08:27→20:36)
[2021-07-09] MEDS: Aspirin 81 mg Enteric Coated Tablet PO SCH (08:27)
[2021-07-09] MEDS: Polyethylene Glycol 3350 17 GM Packet PO SCH (08:28)
[2021-07-09] MEDS: metFORMIN 500 MG TAB PO SCH (08:28)
[2021-07-09] MEDS: Atorvastatin Calcium 40 MG TAB PO SCH (20:36)
[2021-07-10] MEDS: Levothyroxine Sodium 75 MCG TAB PO SCH (05:30)
[2021-07-10] MEDS: Losartan Potassium 50 MG TAB PO SCH (05:30)
[2021-07-10] MEDS: Levothyroxine Sodium 100 MCG TAB PO SCH (05:30)
[2021-07-10 06:25] LABS: Hemoglobin 10.6 g/dL (12.0-16.0); Platelet Count 401 thou/uL (130-400)
[2021-07-10] MEDS: metFORMIN 500 MG TAB PO SCH (08:13)
[2021-07-10] MEDS: Carvedilol 6.25 MG TAB PO SCH ×2 (08:13→17:19)
[2021-07-10] MEDS: Apixaban 5 MG TAB PO SCH ×2 (08:13→20:20)
[2021-07-10] MEDS: Multivitamin W/ Minerals 1 TAB PO SCH (08:13)
[2021-07-10] MEDS: Furosemide 40 MG TAB PO SCH (08:13)
[2021-07-10] MEDS: Aspirin 81 mg Enteric Coated Tablet PO SCH (08:13)
[2021-07-10] MEDS: Polyethylene Glycol 3350 17 GM Packet PO SCH (08:14)
[2021-07-10] MEDS: Acetaminophen 325 MG TAB PO PRN ×2 (08:14→18:48)
[2021-07-10] MEDS: Trospium 20 MG TAB PO SCH ×2 (08:14→20:21)
[2021-07-10] MEDS: Atorvastatin Calcium 40 MG TAB PO SCH (20:19)
[2021-07-11] MEDS: Levothyroxine Sodium 100 MCG TAB PO SCH (05:26)
[2021-07-11] MEDS: Levothyroxine Sodium 75 MCG TAB PO SCH (05:26)
[2021-07-11] MEDS: Losartan Potassium 50 MG TAB PO SCH (05:26)
[2021-07-11] MEDS: Carvedilol 6.25 MG TAB PO SCH ×2 (08:55→16:56)
[2021-07-11] MEDS: Furosemide 40 MG TAB PO SCH (08:56)
[2021-07-11] MEDS: metFORMIN 500 MG TAB PO SCH (08:56)
[2021-07-11] MEDS: Apixaban 5 MG TAB PO SCH ×2 (08:56→21:14)
[2021-07-11] MEDS: Multivitamin W/ Minerals 1 TAB PO SCH (08:56)
[2021-07-11] MEDS: Aspirin 81 mg Enteric Coated Tablet PO SCH (08:56)
[2021-07-11] MEDS: Acetaminophen 325 MG TAB PO PRN ×2 (08:57→16:55)
[2021-07-11] MEDS: Trospium 20 MG TAB PO SCH ×2 (08:57→21:14)
[2021-07-11] MEDS: Polyethylene Glycol 3350 17 GM Packet PO SCH (08:57)
[2021-07-11] MEDS: Atorvastatin Calcium 40 MG TAB PO SCH (21:14)
[2021-07-12] MEDS: Acetaminophen 325 MG TAB PO PRN ×2 (00:55→18:22)
[2021-07-12] MEDS: Losartan Potassium 50 MG TAB PO SCH (05:38)
[2021-07-12] MEDS: Levothyroxine Sodium 75 MCG TAB PO SCH (05:38)
[2021-07-12] MEDS: Levothyroxine Sodium 100 MCG TAB PO SCH (05:40)
[2021-07-12] MEDS: Trospium 20 MG TAB PO SCH ×2 (08:35→20:44)
[2021-07-12] MEDS: Carvedilol 6.25 MG TAB PO SCH ×2 (08:35→17:24)
[2021-07-12] MEDS: Apixaban 5 MG TAB PO SCH ×2 (08:35→20:44)
[2021-07-12] MEDS: Multivitamin W/ Minerals 1 TAB PO SCH (08:35)
[2021-07-12] MEDS: Aspirin 81 mg Enteric Coated Tablet PO SCH (08:35)
[2021-07-12] MEDS: Furosemide 40 MG TAB PO SCH (08:35)
[2021-07-12] MEDS: metFORMIN 500 MG TAB PO SCH (08:36)
[2021-07-12] MEDS: Polyethylene Glycol 3350 17 GM Packet PO SCH (08:36)
[2021-07-12] MEDS: Atorvastatin Calcium 40 MG TAB PO SCH (20:44)
[2021-07-13] MEDS: Acetaminophen 325 MG TAB PO PRN ×2 (03:13→17:15)
[2021-07-13] MEDS: Levothyroxine Sodium 75 MCG TAB PO SCH (05:29)
[2021-07-13] MEDS: Losartan Potassium 50 MG TAB PO SCH (05:29)
[2021-07-13] MEDS: Levothyroxine Sodium 100 MCG TAB PO SCH (05:29)
[2021-07-13 05:46] LABS: Hemoglobin 10.7 g/dL (12.0-16.0); Platelet Count 389 thou/uL (130-400)
[2021-07-13] MEDS: Apixaban 5 MG TAB PO SCH ×2 (09:19→20:34)
[2021-07-13] MEDS: Polyethylene Glycol 3350 17 GM Packet PO SCH (09:19)
[2021-07-13] MEDS: Furosemide 40 MG TAB PO SCH (09:19)
[2021-07-13] MEDS: Carvedilol 6.25 MG TAB PO SCH ×2 (09:19→17:18)
[2021-07-13] MEDS: Aspirin 81 mg Enteric Coated Tablet PO SCH (09:19)
[2021-07-13] MEDS: Trospium 20 MG TAB PO SCH ×2 (09:19→20:34)
[2021-07-13] MEDS: metFORMIN 500 MG TAB PO SCH (09:19)
[2021-07-13] MEDS: Multivitamin W/ Minerals 1 TAB PO SCH (09:19)
[2021-07-13] MEDS: Atorvastatin Calcium 40 MG TAB PO SCH (20:34)
[2021-07-14] MEDS: Losartan Potassium 50 MG TAB PO SCH (05:15)
[2021-07-14] MEDS: Levothyroxine Sodium 75 MCG TAB PO SCH (05:15)
[2021-07-14] MEDS: Levothyroxine Sodium 100 MCG TAB PO SCH (05:15)
[2021-07-14] MEDS: Acetaminophen 325 MG TAB PO PRN ×2 (05:15→20:59)
[2021-07-14] MEDS: metFORMIN 500 MG TAB PO SCH (08:47)
[2021-07-14] MEDS: Trospium 20 MG TAB PO SCH ×2 (08:47→20:59)
[2021-07-14] MEDS: Apixaban 5 MG TAB PO SCH ×2 (08:47→20:59)
[2021-07-14] MEDS: Aspirin 81 mg Enteric Coated Tablet PO SCH (08:47)
[2021-07-14] MEDS: Carvedilol 6.25 MG TAB PO SCH (08:47)
[2021-07-14] MEDS: Furosemide 40 MG TAB PO SCH (08:47)
[2021-07-14] MEDS: Multivitamin W/ Minerals 1 TAB PO SCH (08:47)
[2021-07-14] MEDS: Polyethylene Glycol 3350 17 GM Packet PO SCH (08:56)
[2021-07-14] MEDS: Carvedilol 25 MG TAB PO SCH (17:00)
[2021-07-14 17:03] LABS: SARS-CoV-2 PCR by NAA Not Detected (NotDetected)
[2021-07-14] MEDS ORDERED: Acetaminophen 325 MG TAB ONE (20:36)
[2021-07-14] MEDS: Atorvastatin Calcium 40 MG TAB PO SCH (20:59)
[2021-07-15] MEDS: Levothyroxine Sodium 100 MCG TAB PO SCH (05:23)
[2021-07-15] MEDS: Levothyroxine Sodium 75 MCG TAB PO SCH (05:24)
[2021-07-15] MEDS: Losartan Potassium 50 MG TAB PO SCH (05:24)
[2021-07-15] MEDS: Acetaminophen 325 MG TAB PO PRN ×2 (08:27→15:55)
[2021-07-15] MEDS: Polyethylene Glycol 3350 17 GM Packet PO SCH (08:28)
[2021-07-15] MEDS: Aspirin 81 mg Enteric Coated Tablet PO SCH (08:29)
[2021-07-15] MEDS: Apixaban 5 MG TAB PO SCH ×2 (08:29→21:13)
[2021-07-15] MEDS: Furosemide 40 MG TAB PO SCH (08:29)
[2021-07-15] MEDS: metFORMIN 500 MG TAB PO SCH (08:29)
[2021-07-15] MEDS: Multivitamin W/ Minerals 1 TAB PO SCH (08:29)
[2021-07-15] MEDS: Carvedilol 25 MG TAB PO SCH ×2 (08:29→16:33)
[2021-07-15] MEDS: Trospium 20 MG TAB PO SCH ×2 (08:30→21:14)
[2021-07-15] MEDS: Atorvastatin Calcium 40 MG TAB PO SCH (21:13)
[2021-07-16] MEDS: Levothyroxine Sodium 75 MCG TAB PO SCH (06:11)
[2021-07-16] MEDS: Levothyroxine Sodium 100 MCG TAB PO SCH (06:11)
[2021-07-16] MEDS: Losartan Potassium 50 MG TAB PO SCH (06:30)
[2021-07-16 06:38] LABS: Anion Gap 13 mmol/L (10-20); BUN (Urea Nitrogen) 15 mg/dL (9.8-20.1); Calc. Creatinine Clearance 76 mL/min (70-130); Calcium 9.1 mg/dL (7.8-10.44); Carbon Dioxide 29 mmol/L (23-31); Chloride 102 mmol/L (98-107); Glucose 107 mg/dL (83-110); Potassium 4.2 mmol/L (3.5-5.1); Sodium 140 mmol/L (136-145)
[2021-07-16 07:09] LABS: Band 10 % (5-11); Eosinophils 1 % (0-10); Hypochromia SLIGHT = 6-15 cells (100X) (0-5/hpf); Lymphocytes 33 % (21-51); MDiff Complete? YES; Mean Corpuscular HGB CONC 31.2 g/dL (32.0-36.0); Mean Corpuscular Hemoglobin 29.6 pg (27.0-31.0); Mean Corpuscular Volume 94.8 fL (78.0-98.0); Mean Platelet Volume 6.8 fL (7.4-10.4); Monocytes 1 % (0-10); Neutrophil 55 % (42-75); Platelet Count 363 thou/uL (130-400); Platelet Morphology Comment Appears Adequate; RBC Distribution Width 13.6 % (11.5-14.5); Red Blood Cell (RBC) Count 3.74 mill/uL (4.20-5.40); White Blood Cell (WBC) Count 6.5 thou/uL (4.8-10.8)
[2021-07-16] MEDS: Furosemide 40 MG TAB PO SCH (09:09)
[2021-07-16] MEDS: Apixaban 5 MG TAB PO SCH ×2 (09:09→20:36)
[2021-07-16] MEDS: metFORMIN 500 MG TAB PO SCH (09:09)
[2021-07-16] MEDS: Carvedilol 25 MG TAB PO SCH ×2 (09:09→17:00)
[2021-07-16] MEDS: Aspirin 81 mg Enteric Coated Tablet PO SCH (09:09)
[2021-07-16] MEDS: Multivitamin W/ Minerals 1 TAB PO SCH (09:10)
[2021-07-16] MEDS: Acetaminophen 325 MG TAB PO PRN ×2 (09:10→20:37)
[2021-07-16] MEDS: Trospium 20 MG TAB PO SCH ×2 (09:10→20:37)
[2021-07-16] MEDS: Polyethylene Glycol 3350 17 GM Packet PO SCH (09:10)
[2021-07-16] MEDS: Atorvastatin Calcium 40 MG TAB PO SCH (20:36)
[2021-07-17] MEDS: Levothyroxine Sodium 100 MCG TAB PO SCH (05:37)
[2021-07-17] MEDS: Levothyroxine Sodium 75 MCG TAB PO SCH (05:37)
[2021-07-17] MEDS: Losartan Potassium 50 MG TAB PO SCH (05:37)
[2021-07-17] MEDS: Polyethylene Glycol 3350 17 GM Packet PO SCH (09:02)
[2021-07-17] MEDS: Multivitamin W/ Minerals 1 TAB PO SCH (09:02)
[2021-07-17] MEDS: metFORMIN 500 MG TAB PO SCH (09:02)
[2021-07-17] MEDS: Trospium 20 MG TAB PO SCH ×2 (09:02→21:14)
[2021-07-17] MEDS: Carvedilol 25 MG TAB PO SCH ×2 (09:02→15:27)
[2021-07-17] MEDS: Apixaban 5 MG TAB PO SCH ×2 (09:04→21:14)
[2021-07-17] MEDS: Aspirin 81 mg Enteric Coated Tablet PO SCH (09:04)
[2021-07-17] MEDS: Furosemide 40 MG TAB PO SCH (09:04)
[2021-07-17] MEDS: Acetaminophen 325 MG TAB PO PRN ×2 (15:17→21:15)
[2021-07-17] MEDS: Atorvastatin Calcium 40 MG TAB PO SCH (21:14)
[2021-07-18] MEDS: Losartan Potassium 50 MG TAB PO SCH (05:12)
[2021-07-18] MEDS: Levothyroxine Sodium 100 MCG TAB PO SCH (05:12)
[2021-07-18] MEDS: Levothyroxine Sodium 75 MCG TAB PO SCH (05:14)
[2021-07-18] MEDS: Acetaminophen 325 MG TAB PO PRN ×2 (07:59→14:43)
[2021-07-18] MEDS: Carvedilol 25 MG TAB PO SCH ×2 (07:59→17:11)
[2021-07-18] MEDS: Furosemide 40 MG TAB PO SCH (08:01)
[2021-07-18] MEDS: Trospium 20 MG TAB PO SCH ×2 (08:01→20:53)
[2021-07-18] MEDS: Multivitamin W/ Minerals 1 TAB PO SCH (08:01)
[2021-07-18] MEDS: Apixaban 5 MG TAB PO SCH ×2 (08:01→20:50)
[2021-07-18] MEDS: metFORMIN 500 MG TAB PO SCH (08:01)
[2021-07-18] MEDS: Aspirin 81 mg Enteric Coated Tablet PO SCH (08:01)
[2021-07-18] MEDS: Polyethylene Glycol 3350 17 GM Packet PO SCH (08:07)
[2021-07-18] MEDS: Atorvastatin Calcium 40 MG TAB PO SCH (20:51)
[2021-07-19] MEDS: Levothyroxine Sodium 75 MCG TAB PO SCH (05:34)
[2021-07-19] MEDS: Levothyroxine Sodium 100 MCG TAB PO SCH (05:34)
[2021-07-19] MEDS: Losartan Potassium 50 MG TAB PO SCH (05:34)
[2021-07-19] MEDS: Acetaminophen 325 MG TAB PO PRN ×3 (05:38→17:03)
[2021-07-19 06:40] LABS: Hemoglobin 11.8 g/dL (12.0-16.0); Platelet Count 320 thou/uL (130-400)
[2021-07-19] MEDS: Apixaban 5 MG TAB PO SCH ×2 (07:05→21:15)
[2021-07-19] MEDS: Carvedilol 25 MG TAB PO SCH ×2 (07:05→17:04)
[2021-07-19] MEDS: Aspirin 81 mg Enteric Coated Tablet PO SCH (08:13)
[2021-07-19] MEDS: Furosemide 40 MG TAB PO SCH (08:13)
[2021-07-19] MEDS: Trospium 20 MG TAB PO SCH ×2 (08:13→21:15)
[2021-07-19] MEDS: Multivitamin W/ Minerals 1 TAB PO SCH (08:13)
[2021-07-19] MEDS: Polyethylene Glycol 3350 17 GM Packet PO SCH (08:13)
[2021-07-19] MEDS: metFORMIN 500 MG TAB PO SCH (08:13)
[2021-07-19] MEDS: Atorvastatin Calcium 40 MG TAB PO SCH (21:15)
[2021-07-20] MEDS: Levothyroxine Sodium 100 MCG TAB PO SCH (05:19)
[2021-07-20] MEDS: Losartan Potassium 50 MG TAB PO SCH (05:19)
[2021-07-20] MEDS: Levothyroxine Sodium 75 MCG TAB PO SCH (05:19)
[2021-07-20] MEDS: metFORMIN 500 MG TAB PO SCH (08:07)
[2021-07-20] MEDS: Carvedilol 25 MG TAB PO SCH ×2 (08:07→17:29)
[2021-07-20] MEDS: Furosemide 40 MG TAB PO SCH (08:08)
[2021-07-20] MEDS: Trospium 20 MG TAB PO SCH ×2 (08:08→20:25)
[2021-07-20] MEDS: Polyethylene Glycol 3350 17 GM Packet PO SCH (08:08)
[2021-07-20] MEDS: Aspirin 81 mg Enteric Coated Tablet PO SCH (08:08)
[2021-07-20] MEDS: Apixaban 5 MG TAB PO SCH ×2 (08:08→20:25)
[2021-07-20] MEDS: Multivitamin W/ Minerals 1 TAB PO SCH (08:08)
[2021-07-20] MEDS: Atorvastatin Calcium 40 MG TAB PO SCH (20:25)
[2021-07-20] MEDS: Acetaminophen 325 MG TAB PO PRN ×2 (20:25)
[2021-07-21 01:05] VITALS: BMI 31.8
[2021-07-21] MEDS: Losartan Potassium 50 MG TAB PO SCH (05:06)
[2021-07-21] MEDS: Levothyroxine Sodium 75 MCG TAB PO SCH (05:07)
[2021-07-21] MEDS: Levothyroxine Sodium 100 MCG TAB PO SCH (05:07)
[2021-07-21] MEDS: Acetaminophen 325 MG TAB PO PRN ×3 (05:07→21:37)
[2021-07-21] MEDS: Carvedilol 25 MG TAB PO SCH ×2 (08:11→17:08)
[2021-07-21] MEDS: Apixaban 5 MG TAB PO SCH ×2 (08:13→20:27)
[2021-07-21] MEDS: Trospium 20 MG TAB PO SCH ×2 (08:13→20:27)
[2021-07-21] MEDS: Aspirin 81 mg Enteric Coated Tablet PO SCH (08:13)
[2021-07-21] MEDS: Multivitamin W/ Minerals 1 TAB PO SCH (08:13)
[2021-07-21] MEDS: Polyethylene Glycol 3350 17 GM Packet PO SCH (08:13)
[2021-07-21] MEDS: metFORMIN 500 MG TAB PO SCH (08:13)
[2021-07-21] MEDS: Furosemide 40 MG TAB PO SCH (08:13)
[2021-07-21] MEDS: Atorvastatin Calcium 40 MG TAB PO SCH (20:27)
[2021-07-22] MEDS: Levothyroxine Sodium 75 MCG TAB PO SCH (04:50)
[2021-07-22] MEDS: Acetaminophen 325 MG TAB PO PRN ×2 (04:50→22:09)
[2021-07-22] MEDS: Losartan Potassium 50 MG TAB PO SCH (04:50)
[2021-07-22] MEDS: Levothyroxine Sodium 100 MCG TAB PO SCH (04:50)
[2021-07-22 06:48] LABS: Hemoglobin 11.6 g/dL (12.0-16.0); Platelet Count 264 thou/uL (130-400)
[2021-07-22] MEDS: Carvedilol 25 MG TAB PO SCH ×2 (08:39→17:08)
[2021-07-22] MEDS: Multivitamin W/ Minerals 1 TAB PO SCH (08:39)
[2021-07-22] MEDS: metFORMIN 500 MG TAB PO SCH (08:39)
[2021-07-22] MEDS: Polyethylene Glycol 3350 17 GM Packet PO SCH (08:39)
[2021-07-22] MEDS: Trospium 20 MG TAB PO SCH ×2 (08:39→20:45)
[2021-07-22] MEDS: Aspirin 81 mg Enteric Coated Tablet PO SCH (08:40)
[2021-07-22] MEDS: Furosemide 40 MG TAB PO SCH (08:40)
[2021-07-22] MEDS: Apixaban 5 MG TAB PO SCH ×2 (08:41→20:45)
[2021-07-22 18:53] LABS: SARS-CoV-2 PCR by NAA Not Detected (NotDetected)
[2021-07-22] MEDS: Atorvastatin Calcium 40 MG TAB PO SCH (20:45)
[2021-07-23] MEDS: Levothyroxine Sodium 100 MCG TAB PO SCH (05:28)
[2021-07-23] MEDS: Levothyroxine Sodium 75 MCG TAB PO SCH (05:28)
[2021-07-23] MEDS: Losartan Potassium 50 MG TAB PO SCH (05:29)
[2021-07-23] MEDS: metFORMIN 500 MG TAB PO SCH (09:15)
[2021-07-23] MEDS: Apixaban 5 MG TAB PO SCH (09:15)
[2021-07-23] MEDS: Carvedilol 25 MG TAB PO SCH (09:15)
[2021-07-23] MEDS: Aspirin 81 mg Enteric Coated Tablet PO SCH (09:16)
[2021-07-23] MEDS: Multivitamin W/ Minerals 1 TAB PO SCH (09:16)
[2021-07-23] MEDS: Trospium 20 MG TAB PO SCH (09:16)
[2021-07-23] MEDS: Furosemide 40 MG TAB PO SCH (09:16)
[2021-07-23] MEDS: Polyethylene Glycol 3350 17 GM Packet PO SCH (09:16)
[2021-07-23 13:59] VITALS: BP 145/64; TEMP 98.1
== END 2021-07-23 14:22 | disposition home or self-care (01) | DRG 559 ==
LOC: NAV ACUTE 18:48 → UNDOADMIN 18:48
PROVIDERS: ADMIT Internal Medicine; ATTEND Internal Medicine
DX: S42.301D Unspecified fracture of shaft of humerus, right arm, subsequent encounter for fracture with routine healing (principal); G92.9 Unspecified toxic encephalopathy; N39.0 Urinary tract infection, site not specified; R53.81 Other malaise; I25.10 Atherosclerotic heart disease of native coronary artery without angina pectoris; G47.33 Obstructive sleep apnea (adult) (pediatric); I48.0 Paroxysmal atrial fibrillation; I10 Essential (primary) hypertension; B96.1 Klebsiella pneumoniae [K. pneumoniae] as the cause of diseases classified elsewhere; D64.9 Anemia, unspecified; K59.00 Constipation, unspecified; E87.6 Hypokalemia; Z20.822 Contact with and (suspected) exposure to COVID-19; E03.9 Hypothyroidism, unspecified; E78.5 Hyperlipidemia, unspecified; E11.42 Type 2 diabetes mellitus with diabetic polyneuropathy
CPT/HCPCS: 36415; 36416; 80053; 82565; 85014; 85018; 85025; 85049; U0003; U0005